=== PATIENT | female | born 1965 | race Hispanic/Latino ===

== ENCOUNTER → 2023-12-13 13:08 | Outpatient (REF) | payer OTHER, SELFPAY ==
[2023-12-13 14:10] LABS: ALT (SGPT) 73 U/L (0-35); AST (SGOT) 60 U/L (14-36); Albumin 4.4 g/dl (3.5-5.0); Alkaline Phosphatase 111 U/L (38-126); Blood Urea Nitrogen 14 mg/dl (7-17); Calcium 9.9 mg/dl (8.4-10.2); Carbon Dioxide 29 mmol/L (22-30); Chloride 104 mmol/L (98-107); Glucose 95 mg/dl (70-99); Potassium 4.2 mmol/L (3.5-5.1); Sodium 141 mmol/L (135-145); Total Protein 7.4 g/dl (6.3-8.2); eGFR > 60.00
== END ==
LOC: CLINIC 13:08
PROVIDERS: ATTENDING PHYSICIAN Nurse Practitioner Adult Health
DX: R73.03 Prediabetes (principal); K75.81 Nonalcoholic steatohepatitis (NASH)
CPT/HCPCS: 36415; 80053; 83036

== ENCOUNTER → 2024-07-25 09:00 | Outpatient (REF) | payer OTHER, SELFPAY ==
[2024-07-25 10:13] LABS: Glycohemoglobin (HgbA1c) 5.9 % (4.0-5.6)
[2024-07-25 11:09] LABS: ALT (SGPT) 48 U/L (0-35); AST (SGOT) 37 U/L (14-36); Albumin 4.1 g/dl (3.5-5.0); Alkaline Phosphatase 109 U/L (38-126); Blood Urea Nitrogen 12 mg/dl (7-17); Calcium 8.8 mg/dl (8.4-10.2); Carbon Dioxide 27 mmol/L (22-30); Chloride 106 mmol/L (98-107); Glucose 107 mg/dl (70-99); Potassium 4.3 mmol/L (3.5-5.1); Sodium 140 mmol/L (135-145); Total Bilirubin 0.7 mg/dl (0.2-1.3); Total Protein 6.8 g/dl (6.3-8.2); eGFR > 60.00
== END ==
LOC: REG 09:00
PROVIDERS: ATTENDING PHYSICIAN Nurse Practitioner Adult Health
DX: R73.03 Prediabetes (principal); K75.81 Nonalcoholic steatohepatitis (NASH)
CPT/HCPCS: 36415; 80053; 83036

== ENCOUNTER → 2025-01-15 09:41 | Outpatient (REF) | payer OTHER, SELFPAY ==
[2025-01-15 10:41] LABS: Hematocrit 39.9 % (37.0-47.0); Hemoglobin 14.7 g/dL (12.0-16.0); Mean Corp Hgb Conc. 36.8 g/dL (33.0-37.0); Mean Corpuscular Volume 89.3 fL (81.0-99.0); Platelet Count 320 10^3/uL (130-400); Red Cell Dist. Width 13.6 % (11.5-14.5)
[2025-01-15 11:12] LABS: ALT (SGPT) 39 U/L (0-35); AST (SGOT) 35 U/L (14-36); Albumin 4.5 g/dl (3.5-5.0); Alkaline Phosphatase 113 U/L (38-126); Blood Urea Nitrogen 18 mg/dl (7-17); Calcium 9.4 mg/dl (8.4-10.2); Carbon Dioxide 25 mmol/L (22-30); Chloride 110 mmol/L (98-107); Glucose 99 mg/dl (70-99); HDL Cholesterol 60 mg/dl; LDL Cholesterol, Calculated 86 mg/dl; Potassium 4.6 mmol/L (3.5-5.1); Sodium 142 mmol/L (135-145); Total Protein 7.4 g/dl (6.3-8.2); Very Low Density Lipoprotein 20 mg/dl (0-30); eGFR > 60.00
[2025-01-15 12:10] LABS: Glycohemoglobin (HgbA1c) 6.1 % (4.0-5.6)
== END ==
LOC: REG 09:41
PROVIDERS: ATTENDING PHYSICIAN Nurse Practitioner Adult Health
DX: R73.03 Prediabetes (principal); Z00.00 Encounter for general adult medical examination without abnormal findings; Z12.11 Encounter for screening for malignant neoplasm of colon
CPT/HCPCS: 36415; 80053; 80061; 83036; 85027

== ENCOUNTER → 2025-01-17 11:14 | Outpatient (REF) | payer OTHER, SELFPAY ==
[2025-01-19 15:41] LABS: FIT-Fecal Occult Blood Interp Negative
== END ==
LOC: CLINIC 11:14
PROVIDERS: ATTENDING PHYSICIAN Nurse Practitioner Adult Health
DX: Z12.11 Encounter for screening for malignant neoplasm of colon (principal)
CPT/HCPCS: 83520